=== PATIENT | male | born 1935 | race Caucasian/White ===

== ENCOUNTER 2016-11-08 10:02 | Emergency (ER) | payer MEDICARE, OTHER | END 2016-11-08 11:45 | disposition home or self-care (01) | LOC: ER 10:02 | DX: J40 Bronchitis, not specified as acute or chronic (principal); E11.9 Type 2 diabetes mellitus without complications; G30.9 Alzheimer's disease, unspecified; F02.80 Dementia in other diseases classified elsewhere, unspecified severity, without behavioral disturbance, psychotic disturbance, mood disturbance, and anxiety | CPT/HCPCS: 71020; 99283 ==

== ENCOUNTER 2017-01-02 08:00 | Emergency (ER) | payer MEDICARE, OTHER | END 2017-01-02 08:38 | disposition home or self-care (01) | LOC: ER 08:00 | DX: J20.9 Acute bronchitis, unspecified (principal); E11.9 Type 2 diabetes mellitus without complications; I10 Essential (primary) hypertension; Z90.49 Acquired absence of other specified parts of digestive tract; Z85.828 Personal history of other malignant neoplasm of skin | CPT/HCPCS: 99282; 99283 ==

== ENCOUNTER 2017-01-04 19:09 | Emergency (ER) | payer MEDICARE, OTHER | END 2017-01-04 19:53 | disposition home or self-care (01) | LOC: ER 19:09 | DX: M19.90 Unspecified osteoarthritis, unspecified site (principal); G89.29 Other chronic pain; M54.9 Dorsalgia, unspecified; M25.562 Pain in left knee; Z79.899 Other long term (current) drug therapy | CPT/HCPCS: 96372; 99282-25; 99283 ==